=== PATIENT | male | born 1955 | race Caucasian/White ===

== ENCOUNTER 2019-04-14 19:38 | Emergency (ER) | payer SELFPAY ==
[2019-04-14 19:45] VITALS: BP 171/82
[2019-04-14] MEDS ORDERED: DIPH/PERTUSS(ACELL)/TETANUS VAC/PF 0.5 ML SYR (>=10YO) IM ONE (20:22)
[2019-04-14] MEDS ORDERED: LIDOCAINE 1% INJ-PF (10 MG/ML) 30 ML SDV INJ ONE (20:22)
--- NOTE | 2019-04-14 20:23 | ER Document Report ---
ED Medical Screen (RME) - General Chief Complaint: Laceration Stated Complaint: LEFT THUMB LACERATION Time Seen by Provider: 04/14/19 20:17 Mode of Arrival: Ambulatory Information source: Patient Notes: Patient was shucking oysters and the knife slipped. Patient states the knife went through the gloves cutting his left thumb. Patient uncertain when his tetanus immunization was. I have greeted and performed a rapid initial assessment of this patient. A comprehensive ED assessment and evaluation of the patient, analysis of test results and completion of the medical decision making process will be conducted by additional ED providers. TRAVEL OUTSIDE OF THE [place] IN LAST 30 DAYS: No - Related Data Allergies/Adverse Reactions: phenobarbital Allergy (Verified 04/14/19 20:00) Past Medical History - Social History Frequency of alcohol use: Occasional Drug Abuse: None Physical Exam - Vital signs Vitals: Temp Pulse Resp BP Pulse Ox 98.4 F 80 18 171/82 H 97 04/14/19 19:45 04/14/19 19:45 04/14/19 19:45 04/14/19 19:45 04/14/19 19:45 - General General appearance: Appears well, Alert Notes: Left thumb 2 cm laceration, no active bleeding Course - Vital Signs Vital signs: Temp Pulse Resp BP Pulse Ox 98.4 F 80 18 171/82 H 97 04/14/19 19:45 04/14/19 19:45 04/14/19 19:45 04/14/19 19:45 04/14/19 19:45
== END 2019-04-14 21:30 | disposition left against medical advice (07) ==
LOC: ER 19:38 → EDSEX 19:38 → ER 22:11
DX: S61.012A Laceration without foreign body of left thumb without damage to nail, initial encounter (principal); W26.0XXA Contact with knife, initial encounter; Y93.G1 Activity, food preparation and clean up; Z23 Encounter for immunization